=== PATIENT | female | born 1990 | race African-American/Black ===

== ENCOUNTER 2019-09-22 04:02 | Emergency (ER) | payer SELFPAY ==
[~2019-09-22] VITALS: Ht 165.1 cm; Wt 93.0 kg
[2019-09-22] MEDS ORDERED: TETANUS, DIPHTHERIA, PERTUSSIS VAC/PF 0.5ML (>7YR OLD) IM ONE (04:30)
[2019-09-22] MEDS ORDERED: BACITRACIN ZINC OINT UDPKT TOP ONE (04:30)
[2019-09-22] MEDS ORDERED: KETOROLAC 30MG/ML VIAL IM ONE (04:30)
[2019-09-22 06:30] VITALS: BP 125/85
== END 2019-09-22 07:12 | disposition home or self-care (01) ==
LOC: ER 06:30
DX: S90.01XA Contusion of right ankle, initial encounter (principal); S90.31XA Contusion of right foot, initial encounter; Y08.89XA Assault by other specified means, initial encounter; W18.39XA Other fall on same level, initial encounter; R03.0 Elevated blood-pressure reading, without diagnosis of hypertension; Y93.89 Activity, other specified; Y92.9 Unspecified place or not applicable; Z23 Encounter for immunization
CPT/HCPCS: 73610; 73630; 90471; 90715; 96372; 99283; J1885

== ENCOUNTER 2020-03-23 07:55 | Emergency (ER) | payer MEDICAID ==
[~2020-03-23] VITALS: Ht 165.1 cm; Wt 72.0 kg
[2020-03-23] MEDS ORDERED: KETOROLAC 60MG/2ML VIAL IM ONE (08:30)
[2020-03-23 10:02] VITALS: BP 116/80
== END 2020-03-23 10:03 | disposition home or self-care (01) ==
LOC: ER 08:08
DX: S30.0XXA Contusion of lower back and pelvis, initial encounter (principal); W01.0XXA Fall on same level from slipping, tripping and stumbling without subsequent striking against object, initial encounter; Y93.89 Activity, other specified; Y92.89 Other specified places as the place of occurrence of the external cause; Y99.8 Other external cause status
CPT/HCPCS: 72100; 81025; 96372; 99283; J1885